=== PATIENT | female | born 1960 | race Hispanic/Latino ===

== ENCOUNTER 2021-12-26 18:21 | Inpatient (IN) | payer MEDICARE ==
[2021-12-26] MEDS: Sodium Chloride 0.9% 1,000 ML IV SCH (21:15)
[2021-12-26] MEDS: hydrALAZINE 20 MG/ML VIAL SLOW IVP PRN (21:40)
[2021-12-26] MEDS: Heparin 5,000 UNITS/ML VIAL SC SCH (22:00)
[2021-12-26 22:34] VITALS: BMI 23.6
[2021-12-26] MEDS: CALCIUM GLUC 1GM/NS 50ML 1 GM in Premix Bag 1 BAG IVPB SCH (23:00)
[2021-12-27 01:02] LABS: SARS-CoV-2 NAA Rapid Test DETECTED (NotDetected)
[2021-12-27] MEDS: CALCIUM GLUC 1GM/NS 50ML 1 GM in Premix Bag 1 BAG IVPB SCH (01:30)
[2021-12-27] MEDS: Ondansetron PF 4 MG/2 ML Vial IVP PRN ×4 (03:13→23:30)
[2021-12-27] MEDS ORDERED: cloNIDine 0.1 MG TAB PO SCH (03:15)
[2021-12-27 05:05] LABS: #Eosinphils 0.1 10x3/uL (0.0-0.5); #Monocytes 0.3 10x3/uL (0.0-1.1); #Neutrophils 3.6 10x3/uL (1.5-8.4); %Basophils 0.6 % (0.0-2.0); %Eosinophils 1.3 % (0.0-6.0); %Lymphocytes 15.5 % (18.0-47.0); %Monocytes 5.3 % (0.0-10.0); %Neutrophils 76.9 % (40.0-75.0); Hemoglobin 9.7 g/dL (12.0-15.5); Mean Corpuscular HGB CONC 34.2 g/dL (32.0-36.0); Mean Corpuscular Hemoglobin 31.8 pg (27.0-33.0); Mean Corpuscular Volume 93.1 fl (81.6-98.3); Mean Platelet Volume 13.2 fl (7.4-10.4); Platelet Count 132 10x3/uL (150-450); RBC Distribution Width 14.3 % (11.5-14.5); Red Blood Cell (RBC) Count 3.05 10x6/uL (3.90-5.03); White Blood Cell (WBC) Count 4.7 10x3/uL (3.5-10.5)
[2021-12-27 05:14] LABS: Anion Gap 20 mmol/L (10-20); BUN (Urea Nitrogen) 113 mg/dL (9.8-20.1); Calc. Creatinine Clearance 6 mL/min (70-130); Calcium 6.9 mg/dL (7.8-10.44); Carbon Dioxide 13 mmol/L (23-31); Chloride 114 mmol/L (98-107); Estimated GFR 4; Glucose 86 mg/dL (80-115); Phosphorus 7.6 mg/dL (2.3-4.7); Potassium 4.7 mmol/L (3.5-5.1); Sodium 142 mmol/L (136-145)
[2021-12-27 07:01] LABS: Bilirubin Neg (Negative); Blood, Urine 25 (Negative); Clarity Cloudy (Clear); Glucose, Urine (Dipstick) Normal (Negative); Ketone, Urine Negative (Negative); Leukocyte 500 (Negative); Nitrite Negative (Negative); Protein, Urine (Dipstick) 500 mg/dl (Neg-Trace); Specific Gravity, Urine 1.015 (1.002-1.036); Urobilinogen Normal mg/dL (Less than 2); pH, Urine 6.5 (5.0-9.0)
[2021-12-27 07:04] LABS: Urine Culture Reflex No No
[2021-12-27 07:07] LABS: Bacteria/HPF 3+ HPF (None Seen); RBC/HPF 0-3 HPF (0-3); Squamous Epithelial 0-3 HPF (0-3)
[2021-12-27] MEDS: hydrALAZINE 20 MG/ML VIAL SLOW IVP PRN ×2 (09:33→23:30)
[2021-12-27] MEDS ORDERED: Sodium Bicarbonate 150 MEQ in Dextrose 5% in Water 1,000 ML IV SCH (11:00)
[2021-12-27] MEDS ORDERED: Tuberculin PPD 0.1 ML VIAL I-DERMAL SCH ×2 (11:00)
[2021-12-27] MEDS ORDERED: READ PPD TEST SITE PO SCH (11:00)
[2021-12-27 11:52] LABS: Hep B Surf Ag Non-Reactive S/CO (NonReactive)
[2021-12-27 12:00] LABS: HBSAg Index 0.18 S/CO (0-0.99)
[2021-12-27] MEDS: Calcium Acetate 667 MG CAP PO SCH ×3 (12:01→16:41)
[2021-12-27] MEDS: Sodium Chloride 0.9% 1,000 ML IV SCH (12:06)
[2021-12-27] MEDS: Zinc Sulfate 220 MG CAP PO SCH (12:29)
[2021-12-27] MEDS: Ascorbic Acid 500 mg Chewable Tablet PO SCH (12:29)
[2021-12-27] MEDS: Cholecalciferol 1,000 UNITS (25 MCG) TAB PO SCH (12:30)
[2021-12-27] MEDS: READ PPD TEST SITE PO SCH (13:00)
[2021-12-27] MEDS: Heparin 5,000 UNITS/ML VIAL SC SCH ×3 (13:25→21:26)
[2021-12-27] MEDS: Scopolamine 1.5 mg/72 hour Patch TOP SCH (14:38)
[2021-12-28 00:59] LABS: HBSAB Concentration Less than 8.00 mIU/mL; Hep B Core Total Ab Non-Reactive (NonReactive); Hep B Core Total Index 0.08 S/CO (0-0.79); Hep B Surf AB Non-Reactive (NonReactive); Hep C IgG Ab Non-Reactive (NonReactive); Hep C Index 0.06 S/CO (0-0.79)
[2021-12-28] MEDS: hydrALAZINE 20 MG/ML VIAL SLOW IVP PRN ×2 (06:20→10:40)
[2021-12-28] MEDS: Ondansetron PF 4 MG/2 ML Vial IVP PRN ×2 (06:20→16:54)
[2021-12-28] MEDS ORDERED: Bupivacaine 0.25% HCL 30 ML VIAL ONE (06:31)
[2021-12-28] MEDS ORDERED: EPINEPHrine 1 MG/ML AMP ONE (06:31)
[2021-12-28] MEDS ORDERED: Midazolam HCl 2 mg/2 ml Vial ONE (06:35)
[2021-12-28] MEDS ORDERED: PROPOFOL 20 ML ONE (06:35)
[2021-12-28] MEDS ORDERED: Meperidine HCl/PF 25 MG/ML VIAL ONE (06:35)
[2021-12-28] MEDS ORDERED: Morphine 4 MG/ML VIAL SLOW IVP PRN (07:53)
[2021-12-28] MEDS ORDERED: Morphine 2 MG/ML VIAL SLOW IVP PRN (07:58)
[2021-12-28 08:56] LABS: Anion Gap 22 mmol/L (10-20); BUN (Urea Nitrogen) 109 mg/dL (9.8-20.1); Calc. Creatinine Clearance 6 mL/min (70-130); Calcium 7.6 mg/dL (7.8-10.44); Carbon Dioxide 15 mmol/L (23-31); Chloride 109 mmol/L (98-107); Estimated GFR 5; Glucose 104 mg/dL (80-115); Potassium 4.2 mmol/L (3.5-5.1); Sodium 142 mmol/L (136-145)
[2021-12-28] MEDS: Zinc Sulfate 220 MG CAP PO SCH (10:39)
[2021-12-28] MEDS: Ascorbic Acid 500 mg Chewable Tablet PO SCH (10:39)
[2021-12-28] MEDS: Calcium Acetate 667 MG CAP PO SCH ×4 (10:41→18:09)
[2021-12-28] MEDS: Cholecalciferol 1,000 UNITS (25 MCG) TAB PO SCH (10:41)
[2021-12-28] MEDS: Heparin 5,000 UNITS/ML VIAL SC SCH ×3 (11:26→22:23)
[2021-12-28] MEDS: Sodium Bicarbonate 75 MEQ in Dextrose 5% in Water 500 ML IV SCH ×2 (12:35→22:23)
[2021-12-28] MEDS: cefTRIAXone\\ROCEPHIN 1 GM in Sodium Chloride 0.9% 100 ML IVPB SCH (16:51)
[2021-12-29] MEDS: Calcium Acetate 667 MG CAP PO SCH ×3 (10:37→17:30)
[2021-12-29] MEDS: Zinc Sulfate 220 MG CAP PO SCH (10:37)
[2021-12-29] MEDS: Heparin 5,000 UNITS/ML VIAL SC SCH ×3 (10:38→22:15)
[2021-12-29] MEDS: Ascorbic Acid 500 mg Chewable Tablet PO SCH (10:38)
[2021-12-29] MEDS: Cholecalciferol 1,000 UNITS (25 MCG) TAB PO SCH (10:39)
[2021-12-29] MEDS: Sodium Bicarbonate 75 MEQ in Dextrose 5% in Water 500 ML IV SCH ×2 (10:50→22:13)
[2021-12-29] MEDS ORDERED: Tuberculin PPD 0.1 ML VIAL I-DERMAL SCH (13:30)
[2021-12-29] MEDS: READ PPD TEST SITE PO SCH (13:45)
[2021-12-29] MEDS: cefTRIAXone\\ROCEPHIN 1 GM in Sodium Chloride 0.9% 100 ML IVPB SCH (14:35)
[2021-12-29] MEDS ORDERED: CEFAZOLIN 2 GM in Sodium Chloride 0.9% 100 ML IVPB SCH (15:30)
[2021-12-30] MEDS: hydrALAZINE 20 MG/ML VIAL SLOW IVP PRN (03:32)
[2021-12-30 04:44] LABS: Anion Gap 17 mmol/L (10-20); BUN (Urea Nitrogen) 31 mg/dL (9.8-20.1); Calc. Creatinine Clearance 11 mL/min (70-130); Calcium 8.1 mg/dL (7.8-10.44); Carbon Dioxide 27 mmol/L (23-31); Chloride 99 mmol/L (98-107); Estimated GFR 10; Glucose 90 mg/dL (80-115); Potassium 4.2 mmol/L (3.5-5.1); Sodium 139 mmol/L (136-145)
[2021-12-30 04:54] LABS: Platelet Count 141 10x3/uL (150-450)
[2021-12-30 04:55] LABS: #Eosinphils 0.2 10x3/uL (0.0-0.5); #Monocytes 0.5 10x3/uL (0.0-1.1); #Neutrophils 4.1 10x3/uL (1.5-8.4); %Basophils 0.5 % (0.0-2.0); %Eosinophils 3.7 % (0.0-6.0); %Lymphocytes 25.3 % (18.0-47.0); %Monocytes 7.6 % (0.0-10.0); %Neutrophils 62.6 % (40.0-75.0); Hemoglobin 11.8 g/dL (12.0-15.5); Mean Corpuscular HGB CONC 34.3 g/dL (32.0-36.0); Mean Corpuscular Hemoglobin 31.8 pg (27.0-33.0); Mean Corpuscular Volume 92.7 fl (81.6-98.3); Mean Platelet Volume 12.6 fl (7.4-10.4); RBC Distribution Width 13.5 % (11.5-14.5); Red Blood Cell (RBC) Count 3.71 10x6/uL (3.90-5.03); White Blood Cell (WBC) Count 6.6 10x3/uL (3.5-10.5)
[2021-12-30] MEDS: Calcium Acetate 667 MG CAP PO SCH ×3 (10:21→18:05)
[2021-12-30] MEDS: Cholecalciferol 1,000 UNITS (25 MCG) TAB PO SCH (10:21)
[2021-12-30] MEDS: Ascorbic Acid 500 mg Chewable Tablet PO SCH (10:21)
[2021-12-30] MEDS: Zinc Sulfate 220 MG CAP PO SCH (10:22)
[2021-12-30] MEDS: Heparin 5,000 UNITS/ML VIAL SC SCH ×3 (11:26→22:10)
[2021-12-30] MEDS: Sodium Bicarbonate 75 MEQ in Dextrose 5% in Water 500 ML IV SCH (14:38)
[2021-12-30] MEDS: cefTRIAXone\\ROCEPHIN 1 GM in Sodium Chloride 0.9% 100 ML IVPB SCH (14:51)
[2021-12-30] MEDS: Scopolamine 1.5 mg/72 hour Patch TOP SCH (14:58)
[2021-12-30] MEDS: READ PPD TEST SITE PO SCH (15:26)
[2021-12-30] MEDS: Carvedilol 25 MG TAB PO SCH (18:05)
[2021-12-31 04:19] LABS: #Eosinphils 0.2 10x3/uL (0.0-0.5); #Monocytes 0.5 10x3/uL (0.0-1.1); #Neutrophils 3.5 10x3/uL (1.5-8.4); %Basophils 0.5 % (0.0-2.0); %Eosinophils 4.1 % (0.0-6.0); %Lymphocytes 24.4 % (18.0-47.0); %Neutrophils 62.8 % (40.0-75.0); Hemoglobin 10.2 g/dL (12.0-15.5); Mean Corpuscular HGB CONC 33.2 g/dL (32.0-36.0); Mean Corpuscular Hemoglobin 31.6 pg (27.0-33.0); Platelet Count 112 10x3/uL (150-450); RBC Distribution Width 13.5 % (11.5-14.5); Red Blood Cell (RBC) Count 3.23 10x6/uL (3.90-5.03); White Blood Cell (WBC) Count 5.6 10x3/uL (3.5-10.5)
[2021-12-31 04:25] LABS: Anion Gap 15 mmol/L (10-20); BUN (Urea Nitrogen) 28 mg/dL (9.8-20.1); Calc. Creatinine Clearance 11 mL/min (70-130); Calcium 8.1 mg/dL (7.8-10.44); Carbon Dioxide 28 mmol/L (23-31); Chloride 98 mmol/L (98-107); Estimated GFR 10; Glucose 129 mg/dL (80-115); Potassium 3.6 mmol/L (3.5-5.1); Sodium 137 mmol/L (136-145)
[2021-12-31 05:00] LABS: Platelet Morphology Comment Appears Decreased; RBC Morphology Normal
[2021-12-31] MEDS: hydrALAZINE 20 MG/ML VIAL SLOW IVP PRN (07:34)
[2021-12-31] MEDS: Carvedilol 25 MG TAB PO SCH ×2 (08:10→17:12)
[2021-12-31] MEDS: Zinc Sulfate 220 MG CAP PO SCH (09:08)
[2021-12-31] MEDS: Calcium Acetate 667 MG CAP PO SCH ×3 (09:08→17:11)
[2021-12-31] MEDS: Ascorbic Acid 500 mg Chewable Tablet PO SCH (09:08)
[2021-12-31] MEDS: Amlodipine 10 MG TAB PO SCH (09:08)
[2021-12-31] MEDS: Cholecalciferol 1,000 UNITS (25 MCG) TAB PO SCH (09:08)
[2021-12-31] MEDS: Heparin 5,000 UNITS/ML VIAL SC SCH ×3 (09:09→22:45)
[2021-12-31] MEDS: cefTRIAXone\\ROCEPHIN 1 GM in Sodium Chloride 0.9% 100 ML IVPB SCH (14:30)
[2021-12-31] MEDS: Ondansetron PF 4 MG/2 ML Vial IVP PRN (22:45)
[2022-01-01 04:04] LABS: Anion Gap 17 mmol/L (10-20); BUN (Urea Nitrogen) 36 mg/dL (9.8-20.1); Calc. Creatinine Clearance 10 mL/min (70-130); Calcium 8.2 mg/dL (7.8-10.44); Carbon Dioxide 26 mmol/L (23-31); Chloride 98 mmol/L (98-107); Estimated GFR 8; Glucose 93 mg/dL (80-115); Potassium 3.7 mmol/L (3.5-5.1); Sodium 137 mmol/L (136-145)
[2022-01-01 04:07] LABS: #Eosinphils 0.2 10x3/uL (0.0-0.5); #Monocytes 0.5 10x3/uL (0.0-1.1); #Neutrophils 3.1 10x3/uL (1.5-8.4); %Basophils 0.6 % (0.0-2.0); %Eosinophils 3.7 % (0.0-6.0); %Lymphocytes 29.2 % (18.0-47.0); %Monocytes 8.8 % (0.0-10.0); %Neutrophils 57.1 % (40.0-75.0); Hemoglobin 9.3 g/dL (12.0-15.5); Mean Corpuscular HGB CONC 32.3 g/dL (32.0-36.0); Mean Corpuscular Hemoglobin 31.7 pg (27.0-33.0); Mean Corpuscular Volume 98.3 fl (81.6-98.3); Mean Platelet Volume 13.3 fl (7.4-10.4); Platelet Count 98 10x3/uL (150-450); RBC Distribution Width 13.2 % (11.5-14.5); Red Blood Cell (RBC) Count 2.93 10x6/uL (3.90-5.03); White Blood Cell (WBC) Count 5.4 10x3/uL (3.5-10.5)
[2022-01-01] MEDS: hydrALAZINE 20 MG/ML VIAL SLOW IVP PRN (06:20)
[2022-01-01] MEDS: Heparin 5,000 UNITS/ML VIAL SC SCH ×3 (09:00→22:30)
[2022-01-01] MEDS: Calcium Acetate 667 MG CAP PO SCH ×3 (09:00→23:32)
[2022-01-01] MEDS ORDERED: Epoetin (ESRD) 10,000 UNITS/ML VIAL IVP SCH (09:00)
[2022-01-01] MEDS: Carvedilol 25 MG TAB PO SCH ×3 (09:00→16:33)
[2022-01-01] MEDS: Ascorbic Acid 500 mg Chewable Tablet PO SCH (16:29)
[2022-01-01] MEDS: Zinc Sulfate 220 MG CAP PO SCH (16:30)
[2022-01-01] MEDS: Amlodipine 10 MG TAB PO SCH (16:30)
[2022-01-01] MEDS: Cholecalciferol 1,000 UNITS (25 MCG) TAB PO SCH (16:30)
[2022-01-01] MEDS: cefTRIAXone\\ROCEPHIN 1 GM in Sodium Chloride 0.9% 100 ML IVPB SCH (16:31)
[2022-01-02 04:10] LABS: #Eosinphils 0.2 10x3/uL (0.0-0.5); #Monocytes 0.5 10x3/uL (0.0-1.1); %Basophils 0.6 % (0.0-2.0); %Eosinophils 3.2 % (0.0-6.0); %Lymphocytes 22.2 % (18.0-47.0); %Monocytes 9.9 % (0.0-10.0); %Neutrophils 63.7 % (40.0-75.0); Hemoglobin 9.6 g/dL (12.0-15.5); Mean Corpuscular HGB CONC 32.5 g/dL (32.0-36.0); Mean Corpuscular Hemoglobin 31.7 pg (27.0-33.0); Mean Corpuscular Volume 97.4 fl (81.6-98.3); Mean Platelet Volume 13.4 fl (7.4-10.4); Platelet Count 98 10x3/uL (150-450); RBC Distribution Width 13.6 % (11.5-14.5); Red Blood Cell (RBC) Count 3.03 10x6/uL (3.90-5.03); White Blood Cell (WBC) Count 4.7 10x3/uL (3.5-10.5)
[2022-01-02 04:23] LABS: Anion Gap 14 mmol/L (10-20); BUN (Urea Nitrogen) 35 mg/dL (9.8-20.1); Calc. Creatinine Clearance 11 mL/min (70-130); Calcium 8.4 mg/dL (7.8-10.44); Carbon Dioxide 27 mmol/L (23-31); Chloride 101 mmol/L (98-107); Estimated GFR 10; Glucose 95 mg/dL (80-115); Sodium 138 mmol/L (136-145)
[2022-01-02] MEDS ORDERED: CEFAZOLIN 2 GM in Sodium Chloride 0.9% 100 ML IVPB SCH (08:30)
[2022-01-02] MEDS: Carvedilol 25 MG TAB PO SCH ×2 (09:31→16:28)
[2022-01-02] MEDS: Amlodipine 10 MG TAB PO SCH (09:31)
[2022-01-02] MEDS: Calcium Acetate 667 MG CAP PO SCH ×3 (09:31→18:26)
[2022-01-02] MEDS: Zinc Sulfate 220 MG CAP PO SCH (09:32)
[2022-01-02] MEDS: Cholecalciferol 1,000 UNITS (25 MCG) TAB PO SCH (09:32)
[2022-01-02] MEDS: Ascorbic Acid 500 mg Chewable Tablet PO SCH (09:32)
[2022-01-02] MEDS: Heparin 5,000 UNITS/ML VIAL SC SCH ×3 (09:32→21:38)
[2022-01-02] MEDS ORDERED: EPINEPHrine 1 MG/ML AMP ONE (10:00)
[2022-01-02] MEDS ORDERED: Iopamidol 0 ML ONE (10:00)
[2022-01-02] MEDS ORDERED: Protamine Sulfate 50 MG/5 ML VIAL ONE (10:00)
[2022-01-02] MEDS ORDERED: Heparin 5,000 UNITS/ML VIAL ONE (10:01)
[2022-01-02] MEDS ORDERED: Bupivacaine PF 0.5% 30 ML VIAL ONE (10:01)
[2022-01-02] MEDS ORDERED: PROPOFOL 20 ML ONE (13:26)
[2022-01-02] MEDS ORDERED: Heparin 10,000 UNITS/ 10 ML VIAL ONE (14:18)
[2022-01-02] MEDS ORDERED: Ondansetron PF 4 MG/2 ML Vial ONE (14:26)
[2022-01-02] MEDS ORDERED: Acetaminophen 500 MG TAB PO PRN (14:27)
[2022-01-02] MEDS ORDERED: traMADol HCl 50 MG TAB PO PRN (14:27)
[2022-01-02] MEDS: Scopolamine 1.5 mg/72 hour Patch TOP SCH ×2 (16:26→18:32)
[2022-01-02] MEDS: cefTRIAXone\\ROCEPHIN 1 GM in Sodium Chloride 0.9% 100 ML IVPB SCH (16:51)
[2022-01-03 06:48] LABS: Anion Gap 15 mmol/L (10-20); BUN (Urea Nitrogen) 43 mg/dL (9.8-20.1); Calc. Creatinine Clearance 9 mL/min (70-130); Calcium 7.9 mg/dL (7.8-10.44); Carbon Dioxide 26 mmol/L (23-31); Chloride 101 mmol/L (98-107); Estimated GFR 8; Glucose 102 mg/dL (80-115); Sodium 138 mmol/L (136-145)
[2022-01-03 06:59] LABS: #Eosinphils 0.2 10x3/uL (0.0-0.5); #Monocytes 0.5 10x3/uL (0.0-1.1); %Basophils 0.3 % (0.0-2.0); %Eosinophils 3.5 % (0.0-6.0); %Lymphocytes 17.2 % (18.0-47.0); %Monocytes 8.2 % (0.0-10.0); %Neutrophils 70.5 % (40.0-75.0); Mean Corpuscular HGB CONC 32.8 g/dL (32.0-36.0); Mean Corpuscular Volume 97.5 fl (81.6-98.3); Mean Platelet Volume 13.5 fl (7.4-10.4); RBC Distribution Width 13.4 % (11.5-14.5); Red Blood Cell (RBC) Count 2.81 10x6/uL (3.90-5.03); White Blood Cell (WBC) Count 5.7 10x3/uL (3.5-10.5)
[2022-01-03 07:01] LABS: Platelet Count 104 10x3/uL (150-450)
[2022-01-03] MEDS: Calcium Acetate 667 MG CAP PO SCH ×2 (09:43→13:23)
[2022-01-03] MEDS: Carvedilol 25 MG TAB PO SCH (09:43)
[2022-01-03] MEDS: Amlodipine 10 MG TAB PO SCH (09:44)
[2022-01-03] MEDS: Zinc Sulfate 220 MG CAP PO SCH (09:44)
[2022-01-03] MEDS: Cholecalciferol 1,000 UNITS (25 MCG) TAB PO SCH (09:44)
[2022-01-03] MEDS: Ascorbic Acid 500 mg Chewable Tablet PO SCH (09:44)
[2022-01-03] MEDS: Heparin 5,000 UNITS/ML VIAL SC SCH (11:51)
[2022-01-03 14:47] VITALS: BP 130/65; TEMP 97.9
== END 2022-01-03 14:49 | disposition home or self-care (01) | DRG 673 ==
LOC: CSHTELE 18:21
PROVIDERS: ADMIT Internal Medicine; ATTEND Family Medicine
PROC: 5A1D70Z Performance of Urinary Filtration, Intermittent, Less than 6 Hours Per Day (ICD-10-PCS; 2021-12-26)
PROC: 8E0ZXY6 Isolation (ICD-10-PCS; 2021-12-26)
PROC: 0JH63XZ Insertion of Tunneled Vascular Access Device into Chest Subcutaneous Tissue and Fascia, Percutaneous Approach (ICD-10-PCS; 2021-12-28)
PROC: 02HV33Z Insertion of Infusion Device into Superior Vena Cava, Percutaneous Approach (ICD-10-PCS; 2021-12-28)
PROC: B5181ZA Fluoroscopy of Superior Vena Cava using Low Osmolar Contrast, Guidance (ICD-10-PCS; 2021-12-28)
PROC: B548ZZA Ultrasonography of Superior Vena Cava, Guidance (ICD-10-PCS; 2021-12-28)
PROC: 031B0ZF Bypass Right Radial Artery to Lower Arm Vein, Open Approach (ICD-10-PCS; principal; 2022-01-02)
DX: N17.9 Acute kidney failure, unspecified (principal); U07.1 COVID-19; E43 Unspecified severe protein-calorie malnutrition; I12.0 Hypertensive chronic kidney disease with stage 5 chronic kidney disease or end stage renal disease; E87.2 Acidosis; Z20.822 Contact with and (suspected) exposure to COVID-19; N18.6 End stage renal disease; E83.51 Hypocalcemia; H54.3 Unqualified visual loss, both eyes; E11.22 Type 2 diabetes mellitus with diabetic chronic kidney disease; D63.1 Anemia in chronic kidney disease; E11.319 Type 2 diabetes mellitus with unspecified diabetic retinopathy without macular edema; N18.9 Chronic kidney disease, unspecified; Z79.82 Long term (current) use of aspirin; Z88.8 Allergy status to other drugs, medicaments and biological substances; Z79.899 Other long term (current) drug therapy; Z88.6 Allergy status to analgesic agent; Z68.23 Body mass index [BMI] 23.0-23.9, adult; Z98.51 Tubal ligation status
CPT/HCPCS: 36415; 74176; 80048; 81001; 83735; 84100; 85025; 86580; 86704; 87077; 87086; 87186; 87340; 90935; 93970; C1713; C1752; C1776; G0257; J0171; J0360; J0610; J0696; J1642; J1644; J2175; J2250; J2405; J2704; J2720; J3490; J7050; J7070; Q4081; Q9967; S0020; U0002